=== PATIENT | male | born 1955 | race Caucasian/White ===

== ENCOUNTER 2024-03-15 11:32 | Outpatient (CLI) | payer OTHER | END 2024-03-15 23:59 | disposition home or self-care (01) | LOC: RAD 11:32 | PROVIDERS: ATTEND Chiropractor | DX: M25.861 Other specified joint disorders, right knee (principal); M85.88 Other specified disorders of bone density and structure, other site; M13.80 Other specified arthritis, unspecified site | CPT/HCPCS: 73564 ==

== ENCOUNTER 2024-06-28 08:25 | Emergency (ER) | payer OTHER, MEDICARE, MEDICAID ==
[~2024-06-28] VITALS: Ht 210.8 cm; Wt 93.6 kg
[2024-06-28] MEDS: HYDROcodone/acetaminophen 10/325mg tab PO ONE (08:55)
[2024-06-28] MEDS: LIDOcaine 1% W/epiNEPHrine 1:100,000 20ml vial SQ ONE (10:33)
[2024-06-28 10:49] VITALS: BP 174/82; PULSE 79; RESP 17; TEMP 98.3; O2SAT 95
== END 2024-06-28 10:51 | disposition home or self-care (01) ==
LOC: ER 08:26
DX: M25.461 Effusion, right knee (principal)
CPT/HCPCS: 20610; 73564; 99283